=== PATIENT | male | born 1955 | race Two or more races ===

== ENCOUNTER 2020-04-04 06:46 | Day surgery (SDC) | payer OTHER ==
[2020-03-30 10:42] LABS: HEMATOCRIT 47.9 % (37.9-51.0); HEMOGLOBIN 15.9 g/dL (13.5-17.0); MEAN CORPUSCULAR HEMOGLOBIN 28.2 pg (27.0-33.4); MEAN CORPUSCULAR HGB CONC 33.2 g/dL (32.0-36.0); MEAN CORPUSCULAR VOLUME 85 fl (80-97); PLATELET COUNT 262 10^3/uL (150-450); RED BLOOD COUNT 5.65 10^6/uL (4.35-5.55); RED CELL DISTRIBUTION WIDTH 13.8 % (11.5-14.0); WHITE BLOOD COUNT 6.7 10^3/uL (4.0-10.5)
[2020-03-30 11:17] LABS: ANION GAP 7 (5-19); BLOOD UREA NITROGEN 19 mg/dL (7-20); CALCIUM 9.7 mg/dL (8.4-10.2); CARBON DIOXIDE 28 mmol/L (22-30); CHLORIDE 105 mmol/L (98-107); GLUCOSE 94 mg/dL (75-110); POTASSIUM 4.3 mmol/L (3.6-5.0)
[~2020-04-04 06:46] MED LIST: LACTATED RINGERS 1000 ML IV PRN; LIDOCAINE 0.5% INJ-PF (5 MG/ML) 50 ML SDV SUBCUT PRN; METRONIDAZOLE 500 MG/NS RTU 500 MG/100 ML RTUPB IV PRN
[2020-04-04] MEDS ORDERED: METRONIDAZOLE 500 MG/NS RTU 500 MG/100 ML RTUPB IV ONE (07:16)
[2020-04-04] MEDS ORDERED: BUPIVACAINE HCL 0.25% /EPINEPHRINE INJ/PF 30 ML SDV ONE (09:18)
[2020-04-04] MEDS ORDERED: PROPOFOL INJ 200 MG/20 ML VIAL IV ONE (09:18)
[2020-04-04] MEDS ORDERED: MIDAZOLAM 2 MG/2 ML INJ ONE (09:18)
[2020-04-04] MEDS ORDERED: BUPIVACAINE INJ/PF LIPOSOME/PF 266 MG/20 ML SDV ONE (09:18)
[2020-04-04] MEDS ORDERED: FENTANYL CITRATE INJ/PF 100 MCG/2 ML AMPUL ONE (09:18)
[2020-04-04] MEDS ORDERED: DIPHENHYDRAMINE HCL 50 MG/ML VIAL IV PRN (10:06)
[2020-04-04] MEDS ORDERED: MEPERIDINE HCL/PF INJ 25 MG/1 ML DISP.SYRIN IV PRN (10:06)
[2020-04-04] MEDS ORDERED: OXYCODONE-ACETAMINOPHEN 5-325 MG TABLET PO PRN ×2 (10:06)
[2020-04-04] MEDS ORDERED: PROMETHAZINE HCL INJ 25 MG/1 ML VIAL IV PRN ×2 (10:06)
[2020-04-04] MEDS ORDERED: FENTANYL CITRATE INJ/PF 100 MCG/2 ML AMPUL IV PRN ×3 (10:06)
--- NOTE | 2020-04-04 10:49 | Discharge Summary ---
Discharge Summary (SDC) - Discharge Final Diagnosis: INTERNAL/EXTERNAL HEMORRHOID Date of Surgery: 04/04/20 Discharge Date: 04/04/20 Condition: Good Treatment or Instructions: [facility] [address] [place], [place] [id number] Hemorrhoid or Anal Surgery Discharge Instructions 1. General Information: a. DO NOT DRIVE a car or operate dangerous machinery for 4-7 days. b. DO NOT consume alcohol, tranquilizers, sleeping medications or any non-prescribed medications for 24 hours unless approved by your doctor or as long as taking narcotic prescription medications. c. DO NOT make important decisions or sign any important papers for the next 24 hours. d. Have a responsible person with you tonight. 2. Activity Restrictions: 2 weeks. a. Avoid heavy lifting or straining until you feel more comfortable. b. It is fine to go for walks, up and down steps, ride in a car. 3. Treatment: a. Tomorrow morning begin warm water sitz baths (soaks) with plain water. You may do 3-4 times per day or after bowel movements to help relieve spasm and pain. Place a dry gauze or panty liner over the sight to catch drainage and blood to help keep your clothing dry. b. You may use Tucks or other medicated wipes to help clean the area as needed. c. If packing used it will pass spontaneously with bowel function. External dressings and medicated gauze should be removed before sitz baths. 4. Medications: a. You may take the prescription tablets for pain one tablet every 6 hours. (_Toradol_). Do not take additional NSAIDs with medication. Do not take Mobic/ibuprofen with Toradol. c. Resume all normal medications unless a change is specified by your doctors. d. Stool softeners are encouraged to help you for 2-4 weeks to maintain a soft stool and avoid more painful bowel movements due to pain medication. Colace is often used. e. A numbing cream may be prescribed, this can be applied after sitz baths around the perianal area before the sight is covered with a gauze pad. f. Constipation is very common after anal surgery and you may take ygnk-gim-vyieugc medications to help stimulate the bowel such as Milk of Magnesia, Senokot tablets, prune juice and drink plenty of water. 5. Diet: a. Begin with clear liquids and if you do well you may then advance to normal foods low in fat and protein at first. Smaller portion size may be summers the first night. b. Acidic (orange juice, tomato), foods high in ruffage (grapes, celery, asparagus) and spicy foods should be avoided for comfort the first 2-3 weeks since they can cause more burning sensation with bowel movements. 6..Follow Up Care: a. Please call the office to schedule a follow up appointment with your doctor for 2 weeks. In the event of any postoperative problems or questions or you may call the office during business hours or the On-Call physician evenings and weekends at [facility]. [facility] I understand the instructions for my postoperative care as described above and a copy has been given to me. Patient/Significant Other Witness Date Prescriptions: Ketorolac Tromethamine [Toradol 10 mg Tablet] 10 mg PO Q6HP PRN #20 tablet PRN Reason: Referrals: NUZHAT QUINTANA MD [Primary Care Provider] - Discharge Diet: As Tolerated Discharge Activity: Balance Activity w/Rest, No Lifting Over 10 Pounds, No Lifting/Push/Pulling, Walk Frequently Report the Following to Your Physician Immediately: Vomiting, Increase in Pain, Fever over 101 Degrees, Unusual Bleeding, Redness, Swelling, Warmth, Increased Soreness, Drainage-Foul Smelling, Large Clots
--- NOTE | 2020-04-04 10:52 | Operative Report ---
Operative Report DATE OF SURGERY: 04/04/20 PREOPERATIVE DIAGNOSIS: Bleeding internal and external hemorrhoids POSTOPERATIVE DIAGNOSIS: Same OPERATION: 1. Examination under anesthesia. 2. Right lateral combined internal and external hemorrhoidectomy. 3. Internal hemorrhoidal banding x2 left posterior and left anterior positions SURGEON: SHANNON MILLER JUNIOR PROJECT MANAGER: JADEN NICOLE ANESTHESIA: GA TISSUE REMOVED OR ALTERED: Right lateral hemorrhoid COMPLICATIONS: None ESTIMATED BLOOD LOSS: Minimal INTRAOPERATIVE FINDINGS: See below PROCEDURE: Patient was taken to the main operating room where general anesthesia was induced. He is placed in the prone, jackknife position, bed flexed to expose the buttocks. The buttock cheeks were clipped of hair, then taped widely open up. The perianal tissue was then prepped and draped with a Betadine. Surgical plan and surgical timeout were conducted. We anesthetized the perianal tissue with 20 cc of Marcaine, quarter percent. I then opened up the anal canal digitally with a single then to adult fingers. Careful examination of the perianal tissue revealed a external hemorrhoid in the right lateral position, I slight elevation to the perianal tissue just posterior to this representing either a subcutaneous lipoma or varicose tissue. Just beyond the anal verge in a circumferential fashion were multiple areas of white smooth tissue resembling scar. The patient however denies having had previous anal canal surgery. I now inserted the bullet anoscope into the anal canal and carefully examined the anal Derm, anal verge, dentate line, and anal canal tissue proximal to the dentate line consistent with the lower rectum. The findings were significant for internal hemorrhoids in the left posterior position left anterior position, and the right lateral position. In the right lateral position, the internal hemorrhoid was in communication with the external hemorrhoid. Therefore we proceeded with the right lateral combined internal/external hemorrhoid using an open excisional approach. The bullet anoscope was repositioned with the window towards the patient's right lateral internal and external hemorrhoid. A 4-0 chromic suture was placed at the apex of the hemorrhoid. The hemorrhoid was excised through the internal component, the external component as well as the redundant perianal tissue. Initial incision made with a #15 blade, then the hemorrhoid excised the Metzenbaum scissors, carefully elevating the mucosa to remove all venous plexus. Specimen was sent to pathology. The mucosa was closed with the locking 4-0 chromic suture, pexing the deep tissue in the anal canal closure. We are very satisfied with the the flaps, and the closure of the anoderm which was minimal. We now called attention to the 2 internal hemorrhoids in the left anterior lateral, and anterior lateral positions. We brought onto the field a action activated hemorrhoid banding device. The left posterior lateral hemorrhoid then into the hand-held suction device, and a single rubber band was deployed doubly strangulating the internal hemorrhoid. The exact same procedure was performed in the left anterior lateral position. Both bands were in secure position. This point felt the operation was complete. We deployed 20 cc of full-strength Exparel in the perianal tissue. A rolled Gelfoam plug was inserted into the anal canal. Patient tolerated procedure well, rotated in supine position, and successfully extubated and taken to recovery in stable condition. The physician spa assistant manager, Ms. Howard, provided assistance during this case by: retracting tissue, instillation of local anesthesia and closure of skin incisions.
[2020-04-04 13:35] VITALS: BP 129/87
[2020-04-04] MEDS ORDERED: GLYCOPYRROLATE 1 MG/5 ML VIAL ONE (14:01)
[2020-04-04] MEDS ORDERED: ROCURONIUM BROMIDE INJ 50 MG/5 ML VIAL IV ONE (14:01)
[2020-04-04] MEDS ORDERED: NEOSTIGMINE METHYLSULFATE 10 MG/10 ML VIAL ONE (14:01)
[2020-04-04] MEDS ORDERED: LIDOCAINE 2% INJ-PF (20 MG/ML) 2 ML AMPUL ONE (14:01)
[2020-04-04] MEDS ORDERED: ONDANSETRON HCL INJ/PF 4 MG/2 ML SDV ONE (14:01)
[2020-04-04] MEDS ORDERED: SUCCINYLCHOLINE CHLORIDE INJ 200 MG/10 ML VIAL ONE (14:01)
[2020-04-04] MEDS ORDERED: DEXAMETHASONE SOD PHOSPHATE INJ 4 MG/1 ML VIAL ONE (14:01)
== END 2020-04-04 13:13 | disposition home or self-care (01) ==
LOC: OROUT 06:46
PROVIDERS: ATTEND Surgery
DX: K64.4 Residual hemorrhoidal skin tags (principal); K64.8 Other hemorrhoids; E11.9 Type 2 diabetes mellitus without complications; Z79.84 Long term (current) use of oral hypoglycemic drugs; Z79.899 Other long term (current) drug therapy; Z88.8 Allergy status to other drugs, medicaments and biological substances
CPT/HCPCS: 36415; 82962; 85027; 87635; 80048; 88304 ×2; 46261; J2250; J3490 ×5; J1100; J3010; J2710; J0330; J2405; J2704; C9290; C9803